=== PATIENT | female | born 1945 | race Caucasian/White ===

== ENCOUNTER → 2017-01-04 | Outpatient (CLI) | payer OTHER ==
[2017-01-04 11:41] LABS: Basophils # (auto) 0.1 uL; Basophils % (auto) 1.3 % (0.0-2.0); Eosinophils # (auto) 0.2 uL; Eosinophils % (auto) 2.7 % (0.0-7.0); Hematocrit 44.4 % (36.0-46.0); Lymphocytes # (auto) 3.3 uL; Lymphocytes % (auto) 42.1 % (10.0-50.0); Mean Corpuscular Hemoglobin 33.3 pg (28.0-32.0); Mean Corpuscular Hgb Conc. 33.8 g/dL (32.0-36.0); Mean Corpuscular Volume 98.5 fL (80.0-100.0); Mean Platelet Volume 7.1 fL (6.9-10.8); Monocytes # (auto) 0.5 uL; Monocytes % (auto) 6.6 % (0.0-12.0); Neutrophils # (auto) 3.7 uL; Neutrophils % (auto) 47.3 % (37.0-80.0); Nucleated Red Blood Cells % 0.2 %; Platelet Count (auto) 250 10^3/uL (140-450); Red Cell Distribution Width 13.9 % (11.8-14.3); White Blood Cell 7.8 10^3/uL (4.4-10.8)
[2017-01-04 13:11] LABS: Albumin 3.9 g/dL (3.4-5.0); BUN/Creatinine Ratio 15.1; Bilirubin, Total 0.7 mg/dL (0.2-1.0); Calcium 9.6 mg/dL (8.5-10.1); Potassium 4.5 mmol/L (3.5-5.1)
== END | disposition home or self-care (01) ==
LOC: LAB 11:17
PROVIDERS: ATTEND Physician Assistant
DX: J44.9 Chronic obstructive pulmonary disease, unspecified (principal); I12.9 Hypertensive chronic kidney disease with stage 1 through stage 4 chronic kidney disease, or unspecified chronic kidney disease; N18.3 Chronic kidney disease, stage 3 (moderate); Z79.899 Other long term (current) drug therapy
CPT/HCPCS: 36415; 80053; 80061; 82306; 82607; 83036; 84443; 85025

== ENCOUNTER → 2018-01-08 | Outpatient (CLI) | payer OTHER ==
[2018-01-08 10:20] LABS: Basophils # (auto) 0.1 uL; Basophils % (auto) 1.4 % (0.0-2.0); Eosinophils # (auto) 0.2 uL; Eosinophils % (auto) 3.4 % (0.0-7.0); Hematocrit 44.4 % (36.0-46.0); Hemoglobin 15.2 g/dL (12.2-16.2); Lymphocytes # (auto) 2.8 uL; Lymphocytes % (auto) 43.6 % (10.0-50.0); Mean Corpuscular Hemoglobin 33.4 pg (28.0-32.0); Mean Corpuscular Hgb Conc. 34.3 g/dL (32.0-36.0); Mean Corpuscular Volume 97.4 fL (80.0-100.0); Monocytes # (auto) 0.6 uL; Monocytes % (auto) 8.8 % (0.0-12.0); Neutrophils # (auto) 2.8 uL; Neutrophils % (auto) 42.8 % (37.0-80.0); Platelet Count (auto) 249 10^3/uL (140-450); Red Blood Cells 4.55 10^6/uL (4.0-5.20); Red Cell Distribution Width 13.7 % (11.8-14.3); White Blood Cell 6.4 10^3/uL (4.4-10.8)
[2018-01-08 11:05] LABS: Calcium 9.5 mg/dL (8.5-10.1)
[2018-01-08 11:11] LABS: Albumin 3.9 g/dL (3.4-5.0); BUN/Creatinine Ratio 18.8; Bilirubin, Total 0.7 mg/dL (0.2-1.0); Total Protein 8.2 g/dL (6.4-8.2)
== END | disposition home or self-care (01) ==
LOC: LAB 10:01
PROVIDERS: ATTEND Internal Medicine
DX: Z12.11 Encounter for screening for malignant neoplasm of colon (principal); I10 Essential (primary) hypertension
CPT/HCPCS: 36415; 80053; 80061; 82306; 84439; 84443; 85025

== ENCOUNTER → 2018-02-08 | Outpatient (CLI) | payer OTHER | END | disposition home or self-care (01) | LOC: LAB 10:45 | PROVIDERS: ATTEND Internal Medicine | DX: Z12.11 Encounter for screening for malignant neoplasm of colon (principal); I10 Essential (primary) hypertension | CPT/HCPCS: 82274 ==

== ENCOUNTER → 2018-12-18 | Outpatient (CLI) | payer OTHER ==
[2018-12-18 12:11] LABS: Eosinophils # (auto) 0.2 uL; Monocytes # (auto) 0.5 uL; Neutrophils # (auto) 2.2 uL; White Blood Cell 5.5 10^3/uL (4.4-10.8)
[2018-12-18 12:18] LABS: Basophils # (auto) 0.1 uL; Basophils % (auto) 1.2 % (0.0-2.0); Eosinophils % (auto) 3.1 % (0.0-7.0); Hematocrit 42.4 % (36.0-46.0); Hemoglobin 14.6 g/dL (12.2-16.2); Lymphocytes # (auto) 2.6 uL; Lymphocytes % (auto) 46.6 % (10.0-50.0); Mean Corpuscular Hemoglobin 34.2 pg (28.0-32.0); Mean Corpuscular Hgb Conc. 34.4 g/dL (32.0-36.0); Mean Corpuscular Volume 99.3 fL (80.0-100.0); Monocytes % (auto) 8.5 % (0.0-12.0); Neutrophils % (auto) 40.6 % (37.0-80.0); Platelet Count (auto) 245 10^3/uL (140-450); Red Blood Cells 4.27 10^6/uL (4.0-5.20)
[2018-12-18 13:03] LABS: Albumin 3.7 g/dL (3.4-5.0); Calcium 9.3 mg/dL (8.5-10.1); Potassium 3.8 mmol/L (3.5-5.1)
[2018-12-18 13:11] LABS: BUN/Creatinine Ratio 14.6; Bilirubin, Total 0.6 mg/dL (0.2-1.0); Total Protein 7.9 g/dL (6.4-8.2)
== END | disposition home or self-care (01) ==
LOC: LAB 11:22
PROVIDERS: ATTEND Internal Medicine
DX: Z00.00 Encounter for general adult medical examination without abnormal findings (principal); I12.9 Hypertensive chronic kidney disease with stage 1 through stage 4 chronic kidney disease, or unspecified chronic kidney disease; N18.3 Chronic kidney disease, stage 3 (moderate); G45.3 Amaurosis fugax; I67.2 Cerebral atherosclerosis
CPT/HCPCS: 36415; 80053; 80061; 82306; 83036; 84443; 85025

== ENCOUNTER → 2019-01-01 | Outpatient (CLI) | payer OTHER | END | disposition home or self-care (01) | LOC: XY 08:52 | PROVIDERS: ATTEND Internal Medicine | DX: I65.22 Occlusion and stenosis of left carotid artery (principal); H54.7 Unspecified visual loss; I12.9 Hypertensive chronic kidney disease with stage 1 through stage 4 chronic kidney disease, or unspecified chronic kidney disease; N18.3 Chronic kidney disease, stage 3 (moderate) | CPT/HCPCS: 93886 ==

== ENCOUNTER → 2019-01-01 | Outpatient (CLI) | payer OTHER | END | disposition home or self-care (01) | LOC: LAB 10:19 | PROVIDERS: ATTEND Internal Medicine | DX: Z00.00 Encounter for general adult medical examination without abnormal findings (principal); I67.2 Cerebral atherosclerosis; G45.3 Amaurosis fugax | CPT/HCPCS: 82274 ==

== ENCOUNTER 2020-01-16 16:52 | Inpatient (IN) | payer OTHER ==
[~2020-01-16] VITALS: Ht 162.6 cm; Wt 73.9 kg
[2020-01-16] MEDS ORDERED: methylPREDNISolone SOD SUCC 125 MG/2 ML VL IV ONE (17:15)
[2020-01-16 19:38] LABS: Basophils # (auto) 0 10 ^3/uL (0-0.2); Basophils % (auto) 0.5 % (0.0-2.0); Eosinophils # (auto) 0.8 10 ^3/uL (0-0.8); Eosinophils % (auto) 9.5 % (0.0-7.0); Hematocrit 43.1 % (36.0-46.0); Hemoglobin 15.1 g/dL (12.2-16.2); Lymphocytes # (auto) 1.7 10 ^3/uL (0.4-5.4); Lymphocytes % (auto) 20.8 % (10.0-50.0); Mean Corpuscular Volume 97.4 fL (80.0-100.0); Monocytes # (auto) 0.5 10 ^3/uL (0-1.3); Monocytes % (auto) 6.5 % (0.0-12.0); Neutrophils # (auto) 5.1 10 ^3/uL (1.6-8.6); Neutrophils % (auto) 62.7 % (37.0-80.0); Nucleated Red Blood Cells % 0.1 %; Platelet Count (auto) 237 10^3/uL (140-450); Red Blood Cells 4.43 10^6/uL (4.0-5.20); Red Cell Distribution Width 13.5 % (11.8-14.3); White Blood Cell 8.2 10^3/uL (4.4-10.8)
[2020-01-16 19:49] LABS: Albumin 3.5 g/dL (3.4-5.0); Anion Gap 13 (5-15); Blood Urea Nitrogen 8 mg/dL (7-18); Calcium 8.6 mg/dL (8.5-10.1); Carbon Dioxide 24 mmol/L (21-32); Chloride 78 mmol/L (98-107); Glucose 96 mg/dL (74-106)
[2020-01-16 19:57] LABS: Alanine Aminotransferase 27 U/L (13-56); Alkaline Phosphatase 76 U/L (45-117); Aspartate Aminotransferase 39 U/L (15-37); BUN/Creatinine Ratio 9.9; Bilirubin, Total 0.6 mg/dL (0.2-1.0); CRP High Sensitivity 2.14 mg/dL (< 0.3); GFR African American 89 mL/min; GFR Non-African American 73 mL/min; Total Protein 6.9 g/dL (6.4-8.2)
[2020-01-16 20:06] LABS: Potassium 2.8 mmol/L (3.5-5.1); Sodium 115 mmol/L (136-145)
[2020-01-17] MEDS ORDERED: DOCUSATE SOD 100 MG CAP PO PRN (00:15)
[2020-01-17] MEDS ORDERED: SODIUM CHL 3% 500 ML IV ONE (00:15)
[2020-01-17] MEDS ORDERED: MORPHINE SULFATE 4 MG/ML SYR/VIAL IV PRN (00:15)
[2020-01-17] MEDS ORDERED: SODIUM CHLORIDE 0.9% 1,000 ML IV SCH (00:15)
[2020-01-17] MEDS ORDERED: ACETAMINOPHEN 325 MG TAB PO PRN (00:15)
[2020-01-17] MEDS ORDERED: POTASSIUM CHL 20 Meq TABLET PO ONE (00:15)
[2020-01-17] MEDS ORDERED: HYDROcodone-ACET 5/325MG TAB PO PRN (00:15)
[2020-01-17] MEDS ORDERED: NITROGLYCERIN 0.4 MG SL TAB SL PRN (00:15)
[2020-01-17] MEDS ORDERED: ONDANSETRON HCL 4 MG/2 ML VIAL IV PRN (00:15)
[2020-01-17] MEDS ORDERED: MORPHINE SULF INJ 2 MG/ML SYRINGE 1ML IV PRN (00:15)
[2020-01-17] MEDS: ALBUTEROL SULF 2.5 MG/0.5ML(0.5%) NEB SOLN NEB SCH ×5 (02:00→18:00)
[2020-01-17 03:20] LABS: Basophils # (auto) 0 10 ^3/uL (0-0.2); Lymphocytes # (auto) 2.9 10 ^3/uL (0.4-5.4); Neutrophils # (auto) 6.4 10 ^3/uL (1.6-8.6); Nucleated Red Blood Cells % 0.1 %
[2020-01-17 03:22] LABS: Basophils % (auto) 0.3 % (0.0-2.0); Eosinophils % (auto) 9.1 % (0.0-7.0); Hematocrit 43.9 % (36.0-46.0); Hemoglobin 15.7 g/dL (12.2-16.2); Lymphocytes % (auto) 25.7 % (10.0-50.0); Mean Corpuscular Hemoglobin 34.9 pg (28.0-32.0); Mean Corpuscular Hgb Conc. 35.7 g/dL (32.0-36.0); Mean Corpuscular Volume 97.9 fL (80.0-100.0); Monocytes # (auto) 0.9 10 ^3/uL (0-1.3); Monocytes % (auto) 8.3 % (0.0-12.0); Neutrophils % (auto) 56.6 % (37.0-80.0); Platelet Count (auto) 276 10^3/uL (140-450); Red Blood Cells 4.48 10^6/uL (4.0-5.20); Red Cell Distribution Width 13.5 % (11.8-14.3); White Blood Cell 11.3 10^3/uL (4.4-10.8)
[2020-01-17 03:38] LABS: Albumin 3.9 g/dL (3.4-5.0); Potassium 3.1 mmol/L (3.5-5.1)
[2020-01-17 03:41] LABS: BUN/Creatinine Ratio 8.5; Bilirubin, Total 0.8 mg/dL (0.2-1.0); Total Protein 7.7 g/dL (6.4-8.2)
[2020-01-17] MEDS: methylPREDNISolone SOD SUCC 40 MG/ML VL IV SCH ×2 (09:32→23:17)
[2020-01-17] MEDS: MULTIPLE VITAMIN TAB PO SCH (09:33)
[2020-01-17] MEDS: ZINC SULFATE 220mg CAP or TAB PO SCH (09:33)
[2020-01-17] MEDS: ENOXAPARIN SOD 40 MG/0.4 ML SYRINGE SC SCH (09:33)
[2020-01-17] MEDS ORDERED: ASCORBIC ACID 500 MG TAB PO SCH (10:00)
[2020-01-17] MEDS ORDERED: IPRATROPIUM BROM 0.5 MG/2.5ML INH SOL NEB PRN (16:15)
[2020-01-17] MEDS ORDERED: CHLO25TA22 PO (16:32)
[2020-01-17] MEDS ORDERED: CHOL20007 PO (16:32)
[2020-01-17] MEDS ORDERED: LOSA-69 PO (16:32)
[2020-01-17] MEDS ORDERED: MELO1TAB73 PO (16:32)
[2020-01-17] MEDS ORDERED: FLUT1SPR5 (16:32)
[2020-01-17 19:02] LABS: BUN/Creatinine Ratio 11.3; Calcium 8.3 mg/dL (8.5-10.1); Phosphorus 1.5 mg/dL (2.5-4.90); Potassium 3.4 mmol/L (3.5-5.1); Uric Acid 5.7 mg/dL (2.6-6.0)
--- NOTE | 2020-01-17 20:03 | NUR ---
ADMISSION NOTE Pt admitted to room 291-B in stable cond. Pt oriented to room and procedures and POC discussed with pt. Pt verbalizes understanding. Bed is low, wheels are locked, and call light is with in reach.
[2020-01-17] MEDS ORDERED: POTASSIUM PHOSPHATE 44 MEQ in D5W 5% 250 ML IV ONE (21:15)
[2020-01-17 22:00] VITALS: BP 135/64
--- NOTE | 2020-01-17 22:34 | NUR ---
PT IS REFUSING REY CATH INSERTION.
[2020-01-17] MEDS ORDERED: PNEUMOCOCCAL VACC POLYS 25 MCG/0.5 ML VIAL IM ONE (23:15)
[2020-01-17] MEDS ORDERED: INFLUENZA QUAD 2020-2021 0.5 ML SYRG IM ONE (23:15)
[2020-01-17] MEDS: SOD CHL 0.9%/ KCL 20MEQ 1,000 ML IV SCH (23:16)
[2020-01-17] MEDS: ASCORBIC ACID 500 MG TAB PO SCH (23:18)
[2020-01-18 05:00] VITALS: BP 115/67
[2020-01-18] MEDS: ALBUTEROL SULF 2.5 MG/0.5ML(0.5%) NEB SOLN NEB SCH ×3 (06:37→16:30)
--- NOTE | 2020-01-18 07:45 | NUR ---
Opening Shift Note Assumed care of patient, awake and alert. No S/S of distress or pain. Patient is on 2L NC. Patient has a moist cough with minimal clearance of secretions. Instructed on POC and to call for assist PRN, will continue to monitor for changes Q1hr and PRN. Bed is locked and in lowest position. Call light within reach.
[2020-01-18 08:00] VITALS: BP 117/56
[2020-01-18 08:10] LABS: Basophils # (auto) 0 10 ^3/uL (0-0.2); Basophils % (auto) 0.1 % (0.0-2.0); Eosinophils # (auto) 0 10 ^3/uL (0-0.8); Eosinophils % (auto) 0.1 % (0.0-7.0); Hemoglobin 13.7 g/dL (12.2-16.2)
[2020-01-18 08:13] LABS: Hematocrit 39.2 % (36.0-46.0); Lymphocytes # (auto) 1.4 10 ^3/uL (0.4-5.4); Lymphocytes % (auto) 13.5 % (10.0-50.0); Mean Corpuscular Hemoglobin 34.6 pg (28.0-32.0); Monocytes # (auto) 0.4 10 ^3/uL (0-1.3); Monocytes % (auto) 3.8 % (0.0-12.0); Neutrophils # (auto) 8.3 10 ^3/uL (1.6-8.6); Neutrophils % (auto) 82.5 % (37.0-80.0); Nucleated Red Blood Cells % 0.2 %; Platelet Count (auto) 236 10^3/uL (140-450); Red Blood Cells 3.97 10^6/uL (4.0-5.20); Red Cell Distribution Width 13.5 % (11.8-14.3)
[2020-01-18 08:24] LABS: Albumin 3.1 g/dL (3.4-5.0); BUN/Creatinine Ratio 11.2; Calcium 8.4 mg/dL (8.5-10.1); Potassium 3.7 mmol/L (3.5-5.1)
[2020-01-18 08:27] LABS: Bilirubin, Total 0.3 mg/dL (0.2-1.0); Total Protein 6.3 g/dL (6.4-8.2)
[2020-01-18 09:00] VITALS: BP 117/56
[2020-01-18] MEDS: methylPREDNISolone SOD SUCC 40 MG/ML VL IV SCH ×2 (09:43→23:15)
[2020-01-18] MEDS: SOD CHL 0.9%/ KCL 20MEQ 1,000 ML IV SCH (09:43)
[2020-01-18] MEDS: MULTIPLE VITAMIN TAB PO SCH (09:44)
[2020-01-18] MEDS: ZINC SULFATE 220mg CAP or TAB PO SCH (09:44)
[2020-01-18] MEDS: ASCORBIC ACID 500 MG TAB PO SCH ×2 (09:44→23:16)
[2020-01-18] MEDS: ENOXAPARIN SOD 40 MG/0.4 ML SYRINGE SC SCH (09:44)
--- NOTE | 2020-01-18 10:00 | NUR ---
IV removal IV DC'd on left AC with clean sterile technique, catheter fully intact. Pressure dressing applied to site. Patient tolerated well. IV insertion IV access obtained, via clean sterile technique by inserting [20] gauge catheter at [right forearm] after [1] attempt(s). IV secured properly. No trauma to site. Patient tolerated well.
[2020-01-18] MEDS: SOD CHL 0.45% WITH 20MEQ KCL 1,000 ML IV SCH (10:42)
--- NOTE | 2020-01-18 12:14 | NUR ---
Respiratory note: 10:00AM ALBUTEROL MED NEB TX NOT ADMINISTERED DUE TO THERAPIST UNAVAILABLE. RN AWARE TO HAVE RT OAGED IF NEEDED.
[2020-01-18 12:57] VITALS: BP 120/68
--- NOTE | 2020-01-18 16:32 | NUR ---
Respiratory note: 14:00AM ALBUTEROL MED NEB TX NOT ADMINISTERED DUE TO THERAPIST UNAVAILABLE. RN AWARE TO HAVE RT OAGED IF NEEDED.
[2020-01-18 17:00] VITALS: BP 134/75
[2020-01-18] MEDS ORDERED: ALBUTEROL SULF 2.5 MG/0.5ML(0.5%) NEB SOLN NEB PRN ×2 (18:30→19:15)
[2020-01-18 21:00] VITALS: BP 139/78
--- NOTE | 2020-01-18 22:10 | NUR ---
Respiratory note: ASSESSED PT FOR PRN MED NEB AT THIS TIME, NO RESP DISTRESS NOTED, NO TX INDICATED, PULSE OX 96% ON 3LNC, HR 78, RR 20
--- NOTE | 2020-01-18 22:30 | NUR ---
PT C/O COUGH AND REQUESTING COUGH MEDICATION.
--- NOTE | 2020-01-18 22:40 | NUR ---
HOSPITALIST PAGED AT THIS TIME FOR COUGH MED. MIKE GIL TRANSPLANT RN RETURNED PAGE AND NEW ORDERS RECEIVED AT THIS TIME. ORBAV . SEE WRITTEN ORDERS.
[2020-01-18] MEDS: guaiFENesin-DM 100/10mg/5ml SYR PO PRN (23:16)
[2020-01-19 05:00] VITALS: BP 125/83
[2020-01-19 05:14] LABS: Phosphorus 2.4 mg/dL (2.5-4.90)
[2020-01-19] MEDS: SOD CHL 0.45% WITH 20MEQ KCL 1,000 ML IV SCH (06:13)
--- NOTE | 2020-01-19 07:30 | NUR ---
Opening Shift Note Assumed care of patient, awake and alert. No S/S of distress/SOB or pain. Instructed on POC and to call for assist PRN, will continue to monitor for changes Q1hr and PRN. Bed in low and locked position, rails up x2, no-slip socks on.
[2020-01-19 08:00] VITALS: BP 133/71
--- NOTE | 2020-01-19 08:00 | NUR ---
IV insertion/IV removal IV access obtained, via clean sterile technique by inserting 22 gauge catheter at left wrist after 3 attempts. IV secured properly. No trauma to site. Patient tolerated well. IV DC'd to right forearm with clean sterile technique, catheter fully intact. Pressure dressing applied to site. Patient tolerated well.
[2020-01-19 08:59] LABS: BUN/Creatinine Ratio 15.7; Calcium 8.4 mg/dL (8.5-10.1); Potassium 4.2 mmol/L (3.5-5.1)
[2020-01-19] MEDS: methylPREDNISolone SOD SUCC 40 MG/ML VL IV SCH ×2 (09:20→21:31)
[2020-01-19] MEDS: ASCORBIC ACID 500 MG TAB PO SCH ×2 (09:20→21:32)
[2020-01-19] MEDS: MULTIPLE VITAMIN TAB PO SCH (09:20)
[2020-01-19] MEDS: ENOXAPARIN SOD 40 MG/0.4 ML SYRINGE SC SCH (09:21)
[2020-01-19] MEDS: ZINC SULFATE 220mg CAP or TAB PO SCH (09:22)
--- NOTE | 2020-01-19 09:30 | NUR ---
DR NAVAS AT BEDSIDE
[2020-01-19] MEDS: guaiFENesin-DM 100/10mg/5ml SYR PO PRN ×2 (09:52→21:32)
--- NOTE | 2020-01-19 10:31 | NUR ---
Respiratory note: PT ASSESSED FOR PRN MED NEB TX. NO TX INDICATED NOR DESIRED. PT DENIES SOB AT THIS TIME, NO DISTRESS NOTED. HR 72 RR 16 SPO2 100% ON 4L N/C. TITRATED FI02 TO DOWN TO 2L N/C SPO2 NOW 98%. PT AND RN AWARE TO HAVE RT PAGED IF NEEDED.
--- NOTE | 2020-01-19 10:43 | NUR ---
PATIENT OFF UNIT FOR PROCEDURE CT
--- NOTE | 2020-01-19 10:55 | NUR ---
PATIENT BACK ON UNIT
--- NOTE | 2020-01-19 11:00 | NUR ---
URINE SPECIMEN COLLECTED
[2020-01-19 11:32] LABS: Urine Bacteria FEW /hpf (None Seen); Urine Blood Negative /uL (Negative); Urine Specific Gravity 1.008 (1.001-1.035); Urine WBC 1 /hpf (0 - 5)
[2020-01-19 11:45] LABS: Sodium Urine 45 mmol/L (40-220)
[2020-01-19 11:47] LABS: Creatinine, Urine 36 mg/dL (30.0-125.0)
[2020-01-19 12:00] VITALS: BP 135/80
--- NOTE | 2020-01-19 13:53 | NUR ---
PAGE TO [employer] TO NOTIFY OF NEED FOR HOME 02 AT 3 L CONTINUOUS, ABG ORDERED
--- NOTE | 2020-01-19 15:31 | NUR ---
Faxed clinical packet to [facility] [phone] for Home O2, phone number [phone]
[2020-01-19 16:00] VITALS: BP 138/81
--- NOTE | 2020-01-19 16:24 | NUR ---
Called [facility] [phone], spoke with [employer] service, gave patient information, set up account for the patient #[id number], stated to fax the clinical packet to the after hours number [phone].
--- NOTE | 2020-01-19 19:05 | NUR ---
Opening Shift Note Assumed care of patient, awake and alert sitting on a chair at the bed side. Oxygen saturation 93% on room air with no S/S of distress/SOB or pain. Bed locked in the lowest position, side rails up X2, call light within reach. Instructed on POC and to call for assist PRN, will continue to monitor for changes Q1hr and PRN.
--- NOTE | 2020-01-19 19:44 | NUR ---
PT ASSESSED FOR PRN MED NEB TX. SPO2 94% ON RA, HR 81. PT DENIES ANY RESPIRATORY DISTRESS. NO TX INDICATED. PT IS AWARE TO HAVE RT PAGED IF TX NEEDED.
[2020-01-19 23:03] VITALS: BP 139/81
--- NOTE | 2020-01-20 02:10 | NUR ---
ROUNDS PATIENT ASLEEP IN THE LOW FOWLERS LEFT SIDE POSITION. NO SIGNS OF DISTRESS/ SOB AT THIS TIME.
[2020-01-20 06:04] VITALS: BP 100/65
[2020-01-20 06:10] VITALS: BP 129/68
--- NOTE | 2020-01-20 07:22 | NUR ---
PRN M,N TX NOT INDICATE AT THIS TIME. PT IS AWAKE, ALERT AND ORIENTED. PT ON RA, 96% O2 SATS, RR18 BPM, BS ARE CLEAR TO AUSCULTATION. RESPIRATION IS EVEN AND NON LABORED. PT DENIES SOB OR ANY OTHER RESPIRATORY DISTRESS. PT INSTRUCTED TO CALL IF [place] TX IS INDICATED. PT VERNALIZED UNDERSTANDING. WILL CONTINUE TO MONITOR PT.
--- NOTE | 2020-01-20 07:51 | NUR ---
CARE ENDORSED TO DAY SHIFT RN. PATIENT ASLEEP IN THE RIGHT SEMI FOWLERS POSITION. NO SIGNS OF DISTRESS/ SOB AT THIS TIME.
[2020-01-20 08:30] VITALS: BP 143/65
--- NOTE | 2020-01-20 09:12 | NUR ---
Called and cancelled the order for O2 with [facility] [phone] spoke with Mikey, will send to [facility], patient is a DV FRISK
[2020-01-20] MEDS: ZINC SULFATE 220mg CAP or TAB PO SCH (09:21)
[2020-01-20] MEDS: methylPREDNISolone SOD SUCC 40 MG/ML VL IV SCH (09:21)
[2020-01-20] MEDS: ASCORBIC ACID 500 MG TAB PO SCH (09:22)
[2020-01-20] MEDS: ENOXAPARIN SOD 40 MG/0.4 ML SYRINGE SC SCH (09:22)
[2020-01-20] MEDS: MULTIPLE VITAMIN TAB PO SCH (09:22)
--- NOTE | 2020-01-20 09:22 | NUR ---
Scheduled medications given per order. Patient resting comfortably in bed with no distress noted. Patient stable.
[2020-01-20 10:05] LABS: Free T4 (Free Thyroxine) 0.81 ng/dL (0.89-1.76)
[2020-01-20 10:06] LABS: Folate (Folic Acid) 8.71 ng/mL (5.38-24)
--- NOTE | 2020-01-20 10:15 | NUR ---
1000 01/20/20 - Faxed to [employer] vendor at [phone] face sheet, order for home oxygen 3L continuous nasal cannula, H/P pending review and delivery of oxygen at bedside. Authorization [id number], also faxed all documents to [facility] at [phone] for processing.
--- NOTE | 2020-01-20 10:49 | NUR ---
1040- 01/20/20 order for home oxygen cancelled per Dr Aaron due to patient does not qualify per ABG results done on 01/19/20. Notified [employer] to cancel order also made nurse BLANCO aware.
--- NOTE | 2020-01-20 10:55 | NUR ---
Patient resting comfortably in bed with Dr. Aaron at bedside. Patient stable.
--- NOTE | 2020-01-20 11:47 | NUR ---
Nutrition Assessment Est energy needs 5184-6119 kcal (20-25 kcal/kg BW 73.9kg) Est protein needs 59-74g (0.8-1g/kg BW 73.9kg) Will monitor and reassess prn. Addendum: 01/20/20 at [address] Amended: Links added.
--- NOTE | 2020-01-20 11:50 | NUR ---
Patient ambulating in room with no distress noted. Stable.
--- NOTE | 2020-01-20 14:00 | NUR ---
Patient resting quietly and comfortably in bed with no complaint of any pain. Patient stable at this time.
--- NOTE | 2020-01-20 15:45 | NUR ---
Patient ambulating in room with no distress noted; stable.
[2020-01-20 16:00] VITALS: BP 155/84
--- NOTE | 2020-01-20 16:21 | NUR ---
Discharge instructions Both written and verbal discharge instructions given to patient as ordered. Encourage to follow up in the Discharge Clinic on 01-28-20 at 1:30 pm as instructed. All questions and concerns addressed. Patient verbalized understanding. Medication reconciliation form completed and copy given to patient. Peripheral IV removed with catheter intact and no active bleeding; pressure dressing applied to site. Telemetry unit returned to ICU. Patient sitting on side of bed.
--- NOTE | 2020-01-20 16:35 | NUR ---
Discharge Patient taken to vehicle via wheelchair with all personal belongings, accompanied by staff member. No distress noted at time of departure. Addendum: 01/20/20 at 1645 by KELLY PERSAUD RN RN Patient stated she would get flu and pnemonia vaccine at a later date.
== END 2020-01-20 16:35 | disposition home or self-care (01) | DRG 191 ==
LOC: EDBD 16:52 → ER 16:52 → TELE 16:53 → TELE-WESTW 01-17 20:03
PROVIDERS: ADMIT Nurse Practitioner Family; ATTEND Internal Medicine
DX: J44.1 Chronic obstructive pulmonary disease with (acute) exacerbation (principal); E87.1 Hypo-osmolality and hyponatremia; I10 Essential (primary) hypertension; R79.89 Other specified abnormal findings of blood chemistry; E86.0 Dehydration; E87.6 Hypokalemia; Z20.828 Contact with and (suspected) exposure to other viral communicable diseases; Z80.9 Family history of malignant neoplasm, unspecified; Z87.891 Personal history of nicotine dependence; G89.29 Other chronic pain; T50.2X5A Adverse effect of carbonic-anhydrase inhibitors, benzothiadiazides and other diuretics, initial encounter
CPT/HCPCS: 36415; 36600; 71045; 71250; 80048; 80053; 80061; 81001; 82306; 82570; 82607; 82728; 82746; 82805; 83036; 83605; 83735; 83880; 83930; 83935; 84100; 84156; 84300; 84439; 84443; 84484; 84550; 85025; 85379; 86141; 87040; 87426; 93005; 93306; 94640; G0378; J2405; J7060

== ENCOUNTER → 2020-03-30 | Outpatient (CLI) | payer OTHER ==
[~2020-03-30] MED LIST: CHLO25TA2 PO; CHOL20007 PO; FLUT1SPR5; LOSA-69 PO; MELO1TAB73 PO
[2020-03-30 11:54] LABS: Basophils # (auto) 0.1 10 ^3/uL (0-0.2); Basophils % (auto) 0.7 % (0.0-2.0); Eosinophils # (auto) 0.6 10 ^3/uL (0-0.8); Eosinophils % (auto) 8.3 % (0.0-7.0); Hematocrit 37.4 % (36.0-46.0); Lymphocytes # (auto) 2.3 10 ^3/uL (0.4-5.4); Lymphocytes % (auto) 30.5 % (10.0-50.0); Mean Corpuscular Hemoglobin 33.9 pg (28.0-32.0); Mean Corpuscular Hgb Conc. 34.9 g/dL (32.0-36.0); Mean Corpuscular Volume 97.1 fL (80.0-100.0); Monocytes # (auto) 0.7 10 ^3/uL (0-1.3); Monocytes % (auto) 8.6 % (0.0-12.0); Neutrophils % (auto) 51.9 % (37.0-80.0); Platelet Count (auto) 236 10^3/uL (140-450); Red Blood Cells 3.85 10^6/uL (4.0-5.20); Red Cell Distribution Width 13.9 % (11.8-14.3); White Blood Cell 7.7 10^3/uL (4.4-10.8)
[2020-03-30 12:22] LABS: Urine Bacteria FEW /hpf (None Seen); Urine Blood TRACE /uL (Negative); Urine Specific Gravity 1.016 (1.001-1.035); Urine WBC 3 /hpf (0 - 5)
[2020-03-30 12:26] LABS: Potassium 4.1 mmol/L (3.5-5.1)
[2020-03-30 12:37] LABS: Albumin 3.4 g/dL (3.4-5.0); BUN/Creatinine Ratio 13.7; Bilirubin, Total 0.7 mg/dL (0.2-1.0); Calcium 9.4 mg/dL (8.5-10.1); Total Protein 7.1 g/dL (6.4-8.2)
== END | disposition home or self-care (01) ==
LOC: LAB 11:26
PROVIDERS: ATTEND Student in an Organized Health Care Education/Training Program
DX: I10 Essential (primary) hypertension (principal); R73.9 Hyperglycemia, unspecified
CPT/HCPCS: 36415; 80053; 80061; 81001; 83036; 84443; 85025

== ENCOUNTER → 2020-05-03 | Outpatient (CLI) | payer OTHER | END | disposition home or self-care (01) | LOC: LAB 14:15 | PROVIDERS: ATTEND Internal Medicine Pulmonary Disease | DX: Z01.812 Encounter for preprocedural laboratory examination (principal); Z20.822 Contact with and (suspected) exposure to COVID-19 | CPT/HCPCS: 36415; 87426 ==

== ENCOUNTER → 2020-05-04 | Outpatient (CLI) | payer OTHER ==
[~2020-05-04] MED LIST changes: +ALBUTEROL SULF 2.5 MG/0.5ML(0.5%) NEB SOLN ONE
== END | disposition home or self-care (01) ==
LOC: RT 10:31
PROVIDERS: ATTEND Internal Medicine Pulmonary Disease
DX: J44.9 Chronic obstructive pulmonary disease, unspecified (principal); J98.8 Other specified respiratory disorders
CPT/HCPCS: 94060; 94618; 94727; 94729

== ENCOUNTER → 2020-07-02 | Outpatient (CLI) | payer OTHER ==
[~2020-07-02] MED LIST changes: -ALBUTEROL SULF 2.5 MG/0.5ML(0.5%) NEB SOLN ONE
== END | disposition home or self-care (01) ==
LOC: XY 09:56
PROVIDERS: ATTEND Student in an Organized Health Care Education/Training Program
DX: I82.411 Acute embolism and thrombosis of right femoral vein (principal); I82.431 Acute embolism and thrombosis of right popliteal vein; I82.461 Acute embolism and thrombosis of right calf muscular vein
CPT/HCPCS: 93971

== ENCOUNTER → 2020-07-02 | Outpatient (CLI) | payer OTHER ==
[2020-07-02 11:29] LABS: Basophils # (auto) 0 10 ^3/uL (0-0.2); Basophils % (auto) 0.7 % (0.0-2.0); Eosinophils # (auto) 0.2 10 ^3/uL (0-0.8); Hematocrit 43.1 % (36.0-46.0); Hemoglobin 15.1 g/dL (12.2-16.2); Lymphocytes # (auto) 1.8 10 ^3/uL (0.4-5.4); Mean Corpuscular Hemoglobin 33.5 pg (28.0-32.0); Mean Corpuscular Hgb Conc. 35.1 g/dL (32.0-36.0); Mean Corpuscular Volume 95.6 fL (80.0-100.0); Monocytes # (auto) 0.6 10 ^3/uL (0-1.3); Monocytes % (auto) 8.9 % (0.0-12.0); Neutrophils # (auto) 3.7 10 ^3/uL (1.6-8.6); Neutrophils % (auto) 59.4 % (37.0-80.0); Nucleated Red Blood Cells % 0.1 %; Platelet Count (auto) 252 10^3/uL (140-450); Red Blood Cells 4.51 10^6/uL (4.0-5.20); Red Cell Distribution Width 13.7 % (11.8-14.3); White Blood Cell 6.3 10^3/uL (4.4-10.8)
[2020-07-02 13:04] LABS: Potassium 4.2 mmol/L (3.5-5.1)
[2020-07-02 13:13] LABS: BUN/Creatinine Ratio 8.7
== END | disposition home or self-care (01) ==
LOC: LAB 11:13
PROVIDERS: ATTEND Student in an Organized Health Care Education/Training Program
DX: R79.89 Other specified abnormal findings of blood chemistry (principal); E78.5 Hyperlipidemia, unspecified; I10 Essential (primary) hypertension; R60.0 Localized edema; Z12.11 Encounter for screening for malignant neoplasm of colon
CPT/HCPCS: 36415; 80048; 80061; 83880; 84439; 84443; 85025; 85652

== ENCOUNTER → 2020-07-17 | Outpatient (CLI) | payer OTHER | END | disposition home or self-care (01) | LOC: LAB 16:03 | PROVIDERS: ATTEND Student in an Organized Health Care Education/Training Program | DX: Z12.11 Encounter for screening for malignant neoplasm of colon (principal); I10 Essential (primary) hypertension; E78.5 Hyperlipidemia, unspecified; R60.0 Localized edema; R79.89 Other specified abnormal findings of blood chemistry | CPT/HCPCS: 82274 ==

== ENCOUNTER → 2021-06-15 | Outpatient (CLI) | payer OTHER | END | disposition home or self-care (01) | LOC: XYW 10:58 | PROVIDERS: ATTEND Internal Medicine | DX: I07.1 Rheumatic tricuspid insufficiency (principal); I15.8 Other secondary hypertension | CPT/HCPCS: 93306 ==

== ENCOUNTER → 2022-08-22 | Outpatient (CLI) | payer OTHER ==
[~2022-08-22] MED LIST changes: -LOSA-69 PO; +LOSA50TA46 PO; -MELO1TAB73 PO; +MELO7.5T7 PO
[2022-08-22 06:18] LABS: Urine Bacteria None Seen /hpf (None Seen)
[2022-08-22 15:06] LABS: Urine Specific Gravity 1.016 (1.001-1.035)
[2022-08-22 15:07] LABS: Urine Blood 3+ /uL (Negative); Urine WBC >5 /hpf (0 - 5); Urine WBC Clumps PRESENT /hpf (None Seen)
== END | disposition home or self-care (01) ==
LOC: LAB 06:15
PROVIDERS: ATTEND Nurse Practitioner
DX: N39.0 Urinary tract infection, site not specified (principal)
CPT/HCPCS: 81001; 87086

== ENCOUNTER → 2022-11-04 | Outpatient (CLI) | payer OTHER ==
[2022-11-04 10:58] LABS: Basophils # (auto) 0.1 10 ^3/uL (0-0.2); Basophils % (auto) 1.4 % (0.0-2.0); Eosinophils # (auto) 0.3 10 ^3/uL (0-0.8); Eosinophils % (auto) 5.5 % (0.0-7.0); Hematocrit 42.3 % (36.0-46.0); Hemoglobin 14.6 g/dL (12.2-16.2); Lymphocytes % (auto) 52.2 % (10.0-50.0); Mean Corpuscular Hemoglobin 33.6 pg (28.0-32.0); Mean Corpuscular Hgb Conc. 34.5 g/dL (32.0-36.0); Mean Corpuscular Volume 97.4 fL (80.0-100.0); Monocytes # (auto) 0.5 10 ^3/uL (0-1.3); Neutrophils # (auto) 1.8 10 ^3/uL (1.6-8.6); Neutrophils % (auto) 31.9 % (37.0-80.0); Nucleated Red Blood Cells % 0.2 %; Red Blood Cells 4.34 10^6/uL (4.0-5.20); Red Cell Distribution Width 14.4 % (11.8-14.3); White Blood Cell 5.7 10^3/uL (4.4-10.8)
[2022-11-04 11:51] LABS: Alanine Aminotransferase 20 U/L (7-40); Alkaline Phosphatase 64 U/L (46-116); Calcium 9.8 mg/dL (8.5-10.1); Carbon Dioxide 26 mmol/L (20-30); Glucose 92 mg/dL (74-106)
[2022-11-04 11:52] LABS: BUN/Creatinine Ratio 11.3 (10.0-20.0); Blood Urea Nitrogen 12 mg/dL (9-23); LDL Cholesterol 103 mg/dL (< 100); Triglycerides 109 mg/dL (< 150)
[2022-11-04 11:53] LABS: Albumin 4.4 g/dL (3.2-4.8); Aspartate Aminotransferase 23 U/L (13-40); Cholesterol 200 mg/dL (< 200); HDL Cholesterol 82 mg/dL (40-59)
[2022-11-04 11:54] LABS: Bilirubin, Total 0.7 mg/dL (0.2-1.0); Total Protein 7.3 g/dL (5.7-8.2)
[2022-11-04 12:25] LABS: Anion Gap 7 (5-15); Chloride 105 mmol/L (98-107); Potassium 4.8 mmol/L (3.5-5.1); Sodium 138 mmol/L (136-145)
[2022-11-04 12:29] LABS: Urine Bacteria NONE SEEN /hpf (None Seen); Urine Blood TRACE /uL (Negative); Urine Clarity Clear (Clear); Urine Color Colorless (Yellow); Urine Mucus FEW (None Seen); Urine Protein, UAD Negative (Negative); Urine Specific Gravity 1.013 (1.001-1.035); Urine Urobilinogen Normal (Negative); Urine WBC 1 /hpf (0 - 5); Urine pH 6.5 (5.0-8.0)
== END | disposition home or self-care (01) ==
LOC: LAB 10:36
PROVIDERS: ATTEND Student in an Organized Health Care Education/Training Program
DX: I10 Essential (primary) hypertension (principal); N39.0 Urinary tract infection, site not specified; E78.5 Hyperlipidemia, unspecified; R73.9 Hyperglycemia, unspecified
CPT/HCPCS: 36415; 80053; 80061; 81001; 83036; 85025; 87086

== ENCOUNTER → 2023-06-21 | Outpatient (CLI) | payer OTHER ==
[~2023-06-21] MED LIST changes: +LOSA-534 PO; -LOSA50TA46 PO
[2023-06-21 10:39] LABS: Basophils # (auto) 0.1 10 ^3/uL (0-0.2); Basophils % (auto) 0.9 % (0.0-2.0); Eosinophils # (auto) 0.4 10 ^3/uL (0-0.8); Eosinophils % (auto) 4.6 % (0.0-7.0); Hemoglobin 13.9 g/dL (12.2-16.2); Lymphocytes # (auto) 3.6 10 ^3/uL (0.4-5.4); Lymphocytes % (auto) 46.3 % (10.0-50.0); Monocytes # (auto) 0.6 10 ^3/uL (0-1.3); Monocytes % (auto) 7.9 % (0.0-12.0); Neutrophils # (auto) 3.1 10 ^3/uL (1.6-8.6); Neutrophils % (auto) 40.3 % (37.0-80.0); Nucleated Red Blood Cells % 0.2 %; Red Blood Cells 4.47 10^6/uL (4.0-5.20); Red Cell Distribution Width 14.1 % (11.8-14.3); White Blood Cell 7.7 10^3/uL (4.4-10.8)
[2023-06-21 10:46] LABS: Urine Bacteria FEW /hpf (None Seen); Urine Blood TRACE /uL (Negative); Urine Clarity Clear (Clear); Urine Color Colorless (Yellow); Urine Protein, UAD Negative (Negative); Urine Specific Gravity 1.007 (1.001-1.035); Urine Urobilinogen Normal (Negative); Urine WBC 11 /hpf (0 - 5); Urine pH 6.5 (5.0-9.0)
[2023-06-21 11:23] LABS: Alanine Aminotransferase 21 U/L (7-40); Albumin 4.8 g/dL (3.2-4.8); Alkaline Phosphatase 77 U/L (46-116); Anion Gap 6 (5-15); Aspartate Aminotransferase 24 U/L (13-40); BUN/Creatinine Ratio 14.2 (10.0-20.0); Bilirubin, Total 0.6 mg/dL (0.2-1.0); Blood Urea Nitrogen 15 mg/dL (9-23); Calcium 10.4 mg/dL (8.5-10.1); Carbon Dioxide 27 mmol/L (20-30); Chloride 103 mmol/L (98-107); Cholesterol 162 mg/dL (< 200); Glucose 98 mg/dL (74-106); HDL Cholesterol 85 mg/dL (40-59); LDL Cholesterol 56 mg/dL (< 100); Potassium 4.8 mmol/L (3.5-5.1); Sodium 136 mmol/L (136-145); Total Protein 7.6 g/dL (5.7-8.2); Triglycerides 80 mg/dL (< 150)
== END | disposition home or self-care (01) ==
LOC: LAB 10:23
PROVIDERS: ATTEND Student in an Organized Health Care Education/Training Program
DX: I10 Essential (primary) hypertension (principal); E78.5 Hyperlipidemia, unspecified
CPT/HCPCS: 36415; 80053; 80061; 81001; 85025

== ENCOUNTER → 2023-11-27 | Outpatient (CLI) | payer OTHER ==
[~2023-11-27] MED LIST changes: +ALBUTEROL SULF 2.5 MG/0.5ML(0.5%) NEB SOLN ONE
== END | disposition home or self-care (01) ==
LOC: RT 10:53
PROVIDERS: ATTEND Internal Medicine Pulmonary Disease
DX: J44.9 Chronic obstructive pulmonary disease, unspecified (principal)
CPT/HCPCS: 94060; 94727; 94729

== ENCOUNTER → 2024-01-18 | Outpatient (CLI) | payer OTHER ==
[~2024-01-18] MED LIST changes: -ALBUTEROL SULF 2.5 MG/0.5ML(0.5%) NEB SOLN ONE
[2024-01-18 12:04] LABS: Basophils # (auto) 0.1 10 ^3/uL (0-0.2); Basophils % (auto) 0.8 % (0.0-2.0); Eosinophils # (auto) 0.3 10 ^3/uL (0-0.8); Eosinophils % (auto) 4.2 % (0.0-7.0); Hematocrit 40.3 % (36.0-46.0); Hemoglobin 13.5 g/dL (12.2-16.2); Lymphocytes # (auto) 2.6 10 ^3/uL (0.4-5.4); Lymphocytes % (auto) 40.7 % (10.0-50.0); Mean Corpuscular Hemoglobin 32.7 pg (28.0-32.0); Mean Corpuscular Hgb Conc. 33.6 g/dL (32.0-36.0); Mean Corpuscular Volume 97.3 fL (80.0-100.0); Monocytes # (auto) 0.6 10 ^3/uL (0-1.3); Monocytes % (auto) 9.2 % (0.0-12.0); Neutrophils # (auto) 2.9 10 ^3/uL (1.6-8.6); Neutrophils % (auto) 45.1 % (37.0-80.0); Nucleated Red Blood Cells % 0.1 %; Platelet Count (auto) 216 10^3/uL (140-450); Red Blood Cells 4.14 10^6/uL (4.0-5.20); White Blood Cell 6.4 10^3/uL (4.4-10.8)
[2024-01-18 12:07] LABS: Urine Bacteria FEW /hpf (None Seen); Urine Blood 1+ /uL (Negative); Urine Clarity Clear (Clear); Urine Color Light-Yellow (Yellow); Urine Protein, UAD Negative (Negative); Urine Urobilinogen Normal (Negative); Urine WBC 11 /hpf (0 - 5)
[2024-01-18 12:23] LABS: Alanine Aminotransferase 18 U/L (7-40); Albumin 4.5 g/dL (3.2-4.8); Alkaline Phosphatase 71 U/L (46-116); Anion Gap 8 (5-15); Aspartate Aminotransferase 16 U/L (13-40); BUN/Creatinine Ratio 10.4 (10.0-20.0); Blood Urea Nitrogen 12 mg/dL (9-23); Carbon Dioxide 26 mmol/L (20-31); Chloride 104 mmol/L (98-107); Glucose 92 mg/dL (74-106); Sodium 138 mmol/L (136-145)
[2024-01-18 12:24] LABS: Bilirubin, Total 0.5 mg/dL (0.2-1.0); Total Protein 7.1 g/dL (5.7-8.2)
[2024-01-18 12:25] LABS: Calcium 10.6 mg/dL (8.7-10.4); Potassium 5.4 mmol/L (3.5-5.1)
== END | disposition home or self-care (01) ==
LOC: LAB 11:09
PROVIDERS: ATTEND Student in an Organized Health Care Education/Training Program
DX: I10 Essential (primary) hypertension (principal); R73.9 Hyperglycemia, unspecified
CPT/HCPCS: 36415; 80053; 81001; 83036; 84443; 85025

== ENCOUNTER 2024-08-02 13:52 | Emergency (ER) | payer OTHER ==
[~2024-08-02] VITALS: Ht 160 cm; Wt 74.4 kg
--- NOTE | 2024-08-02 14:25 | ED.PDOC ---
Musculoskeletal HPI Comments HPI: 79-year-old female presents to the ED with a chief complaint of possible RT leg DVT onset today (08/02/24) about 1 hour ago. Patient was sent for routine US due to history of DVT. Patient was told she had a blood clot on RT leg, was sent to ED. She currently has no complaints. Denies leg pain, swelling, chest pain, shortness of breath, dizziness, headache. No other symptoms or modifying factors present at this time. Initial Vitals BP: 163/94 HR: 85 RR: 16 O2 Sat: 95% Past Medical history: COPD, HTN, DVT Past Surgical history: Medications: Social History: ETOH occasionally Allergies: NKDA HPI: Poor Historian. REVIEW OF SYSTEMS: CONSTITUTIONAL: Denies acute: fever, diaphoresis, chills, generalized weakness. HEAD: Denies acute: headache, photophobia Eyes: Denies acute: Double vision, vision loss, eye pain, eye discharge. EARS: Denies acute: tinnitus, hearing loss, ear discharge, ear pain, THROAT: Denies acute: sore throat, swelling, difficulty swallowing , pain with swallowing, change in voice. NECK: Denies acute: neck pain, neck swelling, stiff neck. HEART: Denies acute : chest pain, palpitations, LUNGS: Denies acute: SOB, wheezing, cough, hemoptysis ABDOMEN: Denies acute: abdominal pain, Nausea, Vomiting, diarrhea, melena , hematemesis, hematochezia SKIN: Denies acute: rash, redness, lesions, itchiness. EXTREMITIES: Denies acute: calf pain, numbness, tingling, weakness, denies pain in extremity. Denies acute: Low back pain. Neuro: Denies acute: focal neurological deficit, motor or sensory focal neurological deficit, tremors, seizure like activity, confusion, dizziness, change in mental status, loss of bowel or bladder function, cauda equina like symptoms. : Denies acute: dysuria, hematuria, flank pain, increase in urinary frequency. PSYCH: Denies acute: hallucination, suicidal ideation, homicidal ideation. FEMALE: Denies acute: abnormal vaginal bleeding, foul odor, unusual discharge. PHYSICAL EXAM: General: ----no----acute distress, awake and alert. Head: normocephalic, atraumatic. Neck: supple, trachea is midline, no swelling. Throat: Normal phonation. Eyes:, no erythema, no purulent discharge, no proptosis, no icterus. Heart: regular rate, regular rhythm, no significant murmur appreciated. Lungs: no apparent respiratory distress, Able to speak in full sentences. No wheezing, no rhonchi, no crackles. No stridors Clear to auscultation bilaterally. Abdomen: non tender to palpation, non distended, soft, no guarding, no rebound, + bowel sounds. Neuro: Awake, Alert, oriented to name, self, situation, follows commands GCS=15. Speech is normal. Skin: no petechia, no purpura, no cyanosis, non-pale, not jaundice. Lower extremities: --no - Pitting edema no deformity, no focal swelling, no calf TTP. Makes eye contact. moves all four extremities. Face: no apparent facial droop. Ambulating in the ED independently. Pedal pulses are palpable. ED COURSE: DISCLAIMER: This medical document was created using an electronic medical record system with voice recognition software and computerized dictation system. Although this document has been carefully reviewed, there might still be some phonetic and typographical errors. Occasional wrong-word or "sound-alike" substitutions may have occurred due to the inherent limitations of voice recognition software. These areas are purely typographical due to imperfections of the software programs and do not reflect any compromise in the patient's medical care. Please read the chart carefully and recognize, using context, where these substitutions have occurred. Time Seen by MD: 14:15 Primary Care Provider: SAWYERK Reviewed Notes: Medications, Allergies Allergies: Coded Allergies: NO KNOWN ALLERGIES (Unverified , 05/01/15) Home Meds Active Scripts Apixaban Base (ELIQUIS) 5 Mg Tab, 10 MG PO BID for 7 Days, #50 TAB 10MG BID X 7 DAYS THEN 5MG PO BID FOR AT LEAST 6 MONTHS FOR DVT/PE TREATMENT Prov:NICHOLAS DELATORRE DO 08/02/24 Reported Medications Cholecalciferol (VITAMIN D3) 2,000 Unit Tab, 1 TAB PO DAILY, #30 TAB 5 Refills 01/17/20 Fluticasone Propionate (Nasal) (Flonase Allergy Relief) 50 Mcg/Act Spr, 1-2 SPRAY NA BID, SPRAY 01/17/20 Chlorthalidone (Chlorthalidone) 25 Mg Tab, 25 MG PO DAILY, TAB 01/17/20 Meloxicam (Meloxicam) 7.5 Mg Tab, 1 TAB PO DAILY, #30 TAB 2 Refills 01/17/20 Losartan Potassium (Losartan Potassium) 50 Mg Tab, 50 MG PO DAILY for 30 Days, MG 01/17/20 Information Source: Patient Mode of Arrival: Ambulatory Location: Right Extremity Location: Leg Timing: Hours Prehospital treatment: None Severity: Moderate Able to Move Extremity: Yes Bear Weight: Fully Pain: Moderate DVT Risk Factors: DVT Past Medical History PAST MEDICAL HISTORY: COPD, HTN Past Medical History (Other): DVT Surgical History: HR ASSOCIATE History: No Pertinent HR ASSOCIATE History Family History Family History: Family hx of Cancer, Family hx of liver carolyn Social History Smoker: Quit Greater Than 1 Year Alcohol: Occasionally Drugs: Denies Drug Use Lives In: Home Was a procedure done? Was a procedure done?: No Differential Diagnosis EXT Differential Diagnosis: Cellulitis, CHF, Deep Vein Thrombosis, Compartment Syndrome, Neurovascular injury, Arthritis, Bursitis X-Ray, Labs, Meds, VS Vital Signs Date Time Temp Pulse Resp B/P (MAP) Pulse Ox O2 Delivery O2 Flow Rate FiO2 08/02/24 16:00 69 16 97 Room Air 08/02/24 16:00 98.5 69 16 169/76 (107) 97 98.5 08/02/24 14:24 98.1 85 16 163/94 (117) 95 98.1 Lab Test 08/02/24 15:13 Range/Units White Blood Count 8.9 4.4-10.8 10^3/uL Red Blood Count 4.42 4.0-5.20 10^6/uL Hemoglobin 14.6 12.2-16.2 g/dL Hematocrit 42.6 36.0-46.0 % Mean Corpuscular Volume 96.5 80.0-100.0 fL Mean Corpuscular Hemoglobin 33.0 H 28.0-32.0 pg Mean Corpuscular Hemoglobin Concent 34.2 32.0-36.0 g/dL Red Cell Distribution Width 13.6 11.8-14.3 % Platelet Count 255 140-450 10^3/uL Mean Platelet Volume 7.0 6.9-10.8 fL Neutrophils (%) (Auto) 55.5 37.0-80.0 % Lymphocytes (%) (Auto) 30.8 10.0-50.0 % Monocytes (%) (Auto) 8.1 0.0-12.0 % Eosinophils (%) (Auto) 4.1 0.0-7.0 % Basophils (%) (Auto) 1.5 0.0-2.0 % Neutrophils # (Auto) 5.0 1.6-8.6 10 ^3/uL Lymphocytes # (Auto) 2.7 0.4-5.4 10 ^3/uL Monocytes # (Auto) 0.7 0-1.3 10 ^3/uL Eosinophils # (Auto) 0.4 0-0.8 10 ^3/uL Basophils # (Auto) 0.1 0-0.2 10 ^3/uL Nucleated Red Blood Cells 0.1 % Prothrombin Time 10.2 9.3-11.8 sec Prothrombin Time INR 0.96 0.9-1.15 Activated Partial Thromboplast Time 25.6 24.5-34.5 SEC Sodium Level 136 136-145 mmol/L Potassium Level 4.5 3.5-5.1 mmol/L Chloride Level 100 98-107 mmol/L Carbon Dioxide Level 25 20-31 mmol/L Anion Gap 11 5-15 Blood Urea Nitrogen 14 9-23 mg/dL Creatinine 1.03 H 0.550-1.02 mg/dL Glomerular Filtration Rate Calc 55 >90 mL/min BUN/Creatinine Ratio 13.6 10.0-20.0 Serum Glucose 102 74-106 mg/dL Calcium Level 9.5 8.7-10.4 mg/dL Total Bilirubin 0.7 0.2-1.0 mg/dL Aspartate Amino Transferase (AST) 20 <34 U/L Alanine Aminotransferase (ALT) 17 7-40 U/L Alkaline Phosphatase 75 46-116 U/L Troponin I High Sensitivity 4 </=34 ng/L Total Protein 7.0 5.7-8.2 g/dL Albumin 4.6 3.2-4.8 g/dL Current Medications Medications (Trade) Dose Ordered Sig/Janette Route Start Time Stop Time Status Last Admin Aspirin (Ecotrin Enteric Coated Tablet) 325 mg ONCE ONCE PO 08/02/24 16:45 08/02/24 16:46 DC 08/02/24 17:[address] [address] Ph: [phone] DIAGNOSTIC IMAGING Diagnostic Imaging Report : [id number] Signed PATIENT: JESUS WEBSTER ACCT: [id number] UNIT: [id number] : 1945 LOC: ER ROOM / BED: / AGE / SEX: 79 / F ADM STATUS: REG ER SERVICE [id number] ORDERING PHYSICIAN: NICHOLAS DELATORRE DO PROCEDURE(s): BLDVT - BiLat Lower DVT REASON: h/o dvt ORDER NUMBER(s): [id number], ACCESSION NUMBER(s): [id number] EXAM: US Duplex Bilateral Lower Extremities Veins CLINICAL INDICATION: h/o dvt TECHNIQUE: Real-time duplex ultrasound scan of the bilateral lower extremity veins integrating B-mode two-dimensional vascular structure, Doppler spectral analysis, color flow Doppler imaging and compression. COMPARISON: RT LOWER DVT on DOS: 07/02/20 FINDINGS: RIGHT DEEP VEINS: Nonocclusive thrombus in the right mid superficial femoral vein. RIGHT SUPERFICIAL VEINS: Unremarkable. No thrombus in the visualized right great saphenous vein. LEFT DEEP VEINS: Unremarkable. No DVT in the left common femoral, femoral, proximal deep femoral or popliteal veins. The veins demonstrate normal color flow, are normally compressible, with normal phasic flow and/or augmentation response. LEFT SUPERFICIAL VEINS: Unremarkable. No thrombus in the visualized left great saphenous vein. SOFT TISSUES: No acute findings. No popliteal cyst. OTHER FINDINGS: . IMPRESSION: Nonocclusive thrombus in the right mid superficial femoral vein. ATED BY: TAMMY COELHO MD DICTATED DATE/TIME: 08/02/24 152 SIGNED BY: TAMMY COELHO MD SIGNED DATE/TIME: 08/02/24 152 CC: Time of 1ST Reevaluation: 14:45 Reevaluation 1ST: Unchanged Patient Education/Counseling: Diagnosis, Treatment Family Education/Counseling: No Family Present Comments Patient presented with the above HPI.--DVT----workup was initiated. patient was found with the above mentioned diagnosis. the following medications were ordered: please refer to order lists of meds and tests obtained by myself Dr. Delatorre. Patient ED course and VS have been stabilized. Patient has been reassessed in the ED and remained in a stable condition. Pertinent incidental findings were discussed with the patient and/or family. Patient/family voices understanding and is agreeable with plan. Patient has been observed in the ED adequate length of time to insure improvement/stability. Escalation of care considered: Consideration of escalation to observation or admission Patient was DISCHARGED home in a stable condition. Patient was sent her a prescription of Eliquis. Charge nurse called the patient to ensure that she picks up her medication from the pharmacy. Patient will have a close follow up with the PCP. All the reports of any imaging studies that were ordered by myself were reviewed by myself. Departure 1 Departure Time of Disposition: 15:27 Impression: Primary Impression: DVT (deep venous thrombosis) Disposition: HOME / SELF CARE / HOMELESS Condition: Stable Additional Instructions: Additional instructions: You MUST follow-up with your primary care/family doctor in 1 to 2 days. If you are unable to see your primary care/family doctor, please return to our emergency room for re-assessment and re-evaluation in 1 to 2 days. Return to the emergency room here in our facility or to the nearest ER [facility] if your symptoms change or worsen. CONSULTATIONS: you MUST Follow-up for consultation as soon as possible with: -vascular medicine and cardiology in 1-2 days. Please call for appointment. You MUST call the consultants office yourself to make an appointment. You may need to arrange that through your insurance and/or your primary/family doctor. If you are unable to see the senior market intelligence consultant in 1 to 2 days, you must return to our emergency room (or any other ER of your choice) for re-assessment and re- evaluation. Adequate fluid hydration. Take daily aspirin. Below is a copy of your radiological report for follow up: [address] [address] Ph: [phone] DIAGNOSTIC IMAGING Diagnostic Imaging Report : [id number] Signed PATIENT: JESUS WEBSTER ACCT: [id number] UNIT: [id number] : 1945 LOC: ER ROOM / BED: / AGE / SEX: 79 / F ADM STATUS: REG ER SERVICE 1441 ORDERING PHYSICIAN: NICHOLAS DELATORRE DO PROCEDURE(s): BLDVT - BiLat Lower DVT REASON: h/o dvt ORDER NUMBER(s): [id number], ACCESSION NUMBER(s): [id number] EXAM: US Duplex Bilateral Lower Extremities Veins CLINICAL INDICATION: h/o dvt TECHNIQUE: Real-time duplex ultrasound scan of the bilateral lower extremity veins integrating B-mode two-dimensional vascular structure, Doppler spectral analysis, color flow Doppler imaging and compression. COMPARISON: RT LOWER DVT on DOS: 07/02/20 FINDINGS: RIGHT DEEP VEINS: Nonocclusive thrombus in the right mid superficial femoral vein. RIGHT SUPERFICIAL VEINS: Unremarkable. No thrombus in the visualized right great saphenous vein. LEFT DEEP VEINS: Unremarkable. No DVT in the left common femoral, femoral, proximal deep femoral or popliteal veins. The veins demonstrate normal color flow, are normally compressible, with normal phasic flow and/or augmentation response. LEFT SUPERFICIAL VEINS: Unremarkable. No thrombus in the visualized left great saphenous vein. SOFT TISSUES: No acute findings. No popliteal cyst. OTHER FINDINGS: . IMPRESSION: Nonocclusive thrombus in the right mid superficial femoral vein. ATED BY: TAMMY COELHO MD DICTATED DATE/TIME: 08/02/24 1520 SIGNED BY: TAMMY COELHO MD SIGNED DATE/TIME: 08/02/24 1520 CC: e-Prescriptions Apixaban Base (ELIQUIS) 5 Mg Tab 10 MG PO BID for 7 Days, #50 TAB 10MG BID X 7 DAYS THEN 5MG PO BID FOR AT LEAST 6 MONTHS FOR DVT/PE TREATMENT Prov: NICHOLAS DELATORRE DO 08/02/24 Discharged With: Self Critical Care Note Critical Care Time?: No Heart Score Heart Score: Heart Score Response (Comments) Value History N/A 0 EKG N/A 0 Age N/A 0 Risk Factors N/A 0 Troponin N/A 0 Total 0 I personally scribed for NICHOLAS DELATORRE DO ([email or web address]) on 08/02/24 at 14:25. Electronically submitted by Eli Boswell ([email or web address]). I personally scribed for NICHOLAS DELATORRE DO ([email or web address]) on 08/02/24 at 14:36. Electronically submitted by Eli Boswell ([email or web address]). I personally scribed for NICHOLAS DELATORRE DO ([email or web address]) on 08/02/24 at 15:45. Electronically submitted by Eli Boswell ([email or web address]). NICHOLAS DELATORRE DO Aug 02, 2024 14:25
[2024-08-02 15:22] LABS: Basophils # (auto) 0.1 10 ^3/uL (0-0.2); Basophils % (auto) 1.5 % (0.0-2.0); Eosinophils # (auto) 0.4 10 ^3/uL (0-0.8); Eosinophils % (auto) 4.1 % (0.0-7.0); Hematocrit 42.6 % (36.0-46.0); Hemoglobin 14.6 g/dL (12.2-16.2); Lymphocytes # (auto) 2.7 10 ^3/uL (0.4-5.4); Lymphocytes % (auto) 30.8 % (10.0-50.0); Mean Corpuscular Hgb Conc. 34.2 g/dL (32.0-36.0); Mean Corpuscular Volume 96.5 fL (80.0-100.0); Monocytes # (auto) 0.7 10 ^3/uL (0-1.3); Monocytes % (auto) 8.1 % (0.0-12.0); Neutrophils % (auto) 55.5 % (37.0-80.0); Nucleated Red Blood Cells % 0.1 %; Platelet Count (auto) 255 10^3/uL (140-450); Red Blood Cells 4.42 10^6/uL (4.0-5.20); Red Cell Distribution Width 13.6 % (11.8-14.3); White Blood Cell 8.9 10^3/uL (4.4-10.8)
--- NOTE | 2024-08-02 15:23 | DVH ---
EXAM: US Duplex Bilateral Lower Extremities Veins CLINICAL INDICATION: h/o dvt TECHNIQUE: Real-time duplex ultrasound scan of the bilateral lower extremity veins integrating B-mod e two-dimensional vascular structure, Doppler spectral analysis, color flow Doppler imaging and compr ession. COMPARISON: RT LOWER DVT on DOS: 07/02/20 FINDINGS: RIGHT DEEP VEINS: Nonocclusive thrombus in the right mid superficial femoral vein. RIGHT SUPERFICIAL VEINS: Unremarkable. No thrombus in the visualized right great saphenous vein. LEFT DEEP VEINS: Unremarkable. No DVT in the left common femoral, femoral, proximal deep femoral o r popliteal veins. The veins demonstrate normal color flow, are normally compressible, with normal p hasic flow and/or augmentation response. LEFT SUPERFICIAL VEINS: Unremarkable. No thrombus in the visualized left great saphenous vein. SOFT TISSUES: No acute findings. No popliteal cyst. OTHER FINDINGS: . IMPRESSION: Nonocclusive thrombus in the right mid superficial femoral vein.
[2024-08-02 15:37] LABS: INR 0.96 (0.9-1.15); Partial Thromboplastin Time 25.6 SEC (24.5-34.5); Prothrombin Time 10.2 sec (9.3-11.8)
[2024-08-02 15:40] LABS: Alanine Aminotransferase 17 U/L (7-40); Albumin 4.6 g/dL (3.2-4.8); Alkaline Phosphatase 75 U/L (46-116); Anion Gap 11 (5-15); Aspartate Aminotransferase 20 U/L (<34); BUN/Creatinine Ratio 13.6 (10.0-20.0); Bilirubin, Total 0.7 mg/dL (0.2-1.0); Blood Urea Nitrogen 14 mg/dL (9-23); Calcium 9.5 mg/dL (8.7-10.4); Carbon Dioxide 25 mmol/L (20-31); Chloride 100 mmol/L (98-107); Glucose 102 mg/dL (74-106); Potassium 4.5 mmol/L (3.5-5.1)
[2024-08-02 15:43] LABS: Sodium 136 mmol/L (136-145)
[2024-08-02 16:00] VITALS: BP 169/76; PULSE 69; RESP 16; TEMP 98.5; O2SAT 97
[2024-08-02] MEDS: ASPirin-EC 325mg tab PO ONE (17:00)
[2024-08-02] MEDS ORDERED: APIX5TAB PO (17:41)
== END 2024-08-02 17:14 | disposition home or self-care (01) ==
LOC: ER 13:52
DX: I82.401 Acute embolism and thrombosis of unspecified deep veins of right lower extremity (principal); J44.9 Chronic obstructive pulmonary disease, unspecified; I10 Essential (primary) hypertension; Z79.899 Other long term (current) drug therapy
CPT/HCPCS: 36415; 80053; 84484; 85025; 85610; 85730; 93970

== ENCOUNTER → 2024-10-23 | Outpatient (CLI) | payer OTHER ==
[~2024-10-23] MED LIST changes: +APIX5TAB PO
[2024-10-23 11:43] LABS: Hematocrit 40.1 % (36.0-46.0); Hemoglobin 13.7 g/dL (12.2-16.2); Mean Corpuscular Hemoglobin 33.0 pg (28.0-32.0); Mean Corpuscular Volume 96.3 fL (80.0-100.0); Nucleated Red Blood Cells % 0.1 %
[2024-10-23 12:31] LABS: Alanine Aminotransferase 17 U/L (7-40); Albumin 4.6 g/dL (3.2-4.8); Alkaline Phosphatase 66 U/L (46-116); Anion Gap 11 (5-15); BUN/Creatinine Ratio 10.4 (10.0-20.0); Blood Urea Nitrogen 11 mg/dL (9-23); Calcium 9.9 mg/dL (8.7-10.4); Carbon Dioxide 24 mmol/L (20-31); Chloride 102 mmol/L (98-107); Glucose 88 mg/dL (74-106); Potassium 5.0 mmol/L (3.5-5.1); Sodium 137 mmol/L (136-145); Total Protein 7.4 g/dL (5.7-8.2)
[2024-10-23 12:32] LABS: Bilirubin, Total 0.7 mg/dL (0.2-1.0)
== END | disposition home or self-care (01) ==
LOC: LAB 10:41
PROVIDERS: ATTEND Internal Medicine Hematology & Oncology
DX: I10 Essential (primary) hypertension (principal); E78.5 Hyperlipidemia, unspecified; I82.511 Chronic embolism and thrombosis of right femoral vein
CPT/HCPCS: 36415; 80053; 85025; 85379